=== PATIENT | female | born 1975 | race Caucasian/White ===

== ENCOUNTER 2016-07-05 15:01 | Emergency (ER) | payer OTHER ==
[~2016-07-05] VITALS: Ht 152.4 cm; Wt 71.0 kg
[2016-07-05 15:20] VITALS: Ht 152.4 cm; Wt 71.0 kg
[2016-07-05] MEDS ORDERED: ACET500C5 PO (15:41)
--- NOTE | 2016-07-05 16:51 | ERD ---
ER Documentation Chief Complaint Date/Time DATE: 07/05/16 TIME: 16:46 Chief Complaint S/P FALL TODAY C/O LEFT SIDE FACIAL PAIN DENIES KO HPI 40-year-old female patient with no significant past medical history presents to the ED complaining of a mechanical fall that occurred earlier today at 9:15 AM. States that she was cleaning the restroom and accidentally slipped and hit her nose and the side of her left face onto the sink. Denies any loss of consciousness. Denies taking any blood thinners. Denies any headache, nausea, vomiting, chest pain, shortness of breath, dizziness, weakness. Denies any lacerations, bleeding, bruising. ROS All systems reviewed and are negative except as per history of present illness. Medications Home Meds Active Scripts Acetaminophen* (Tylophen*) 500 Mg Capsule, 1 CAP PO Q6H Y for PAIN AND OR ELEVATED TEMP, #30 CAP Prov:DONNELL JUSTICE PA-C 07/05/16 Allergies Allergies: Coded Allergies: No Known Drug Allergies (Verified Allergy, Unknown, 11/06/08) PMhx/Soc History of Surgery: No ( x2) Anesthesia Reaction: No Hx Neurological Disorder: No Hx Respiratory Disorders: No Hx Cardiac Disorders: No Hx Psychiatric Problems: No Hx Miscellaneous Medical Probl: No Hx Alcohol Use: No Hx Substance Use: No Hx Tobacco Use: No Physical Exam Vitals Vital Signs Date Time Temp Pulse Resp B/P Pulse Ox O2 Delivery O2 Flow Rate FiO2 07/05/16 15:20 99.0 69 18 130/66 99 Physical Exam Const: [id number], well-nourished. In no acute distress. Head: Atraumatic, normocephalic. No hematoma. No brasher sign. Eyes: Normal Conjunctiva without injection. No purulent discharge. PERRLA. EOMI ENT: Normal external ear. Slight edema noted over the superior portion of the bridge of the nose. No ecchymosis, deformities noted. No epistaxis noted. Ear canal without erythema. Tympanic membrane pearly cash without effusion or bulging. No hemotympanum. Nasal canal clear with normal turbinates. Moist oropharynx without tonsillar exudates. Non-erythematous pharynx. Uvula midline. No drooling. No trismus. Neck: No cervical midline tenderness. Full range of motion. No meningismus. No cervical lymphadenopathy. No JVD. Resp: Clear to auscultation bilaterally. No wheezing, rhonchi, rales, or crackles. No accessory muscle use. No retractions. Cardio: Regular rate and rhythm. No murmurs, rubs or gallops. Abd: Soft, non tender, non distended. Normal bowel sounds. No palpable masses. No rebound tenderness. No guarding. Negative McBurney's Point. Negative Parker's Sign. Skin: Normal skin turgor. No petechiae or rashes Back: No midline tenderness. No CVA tenderness. Ext: No cyanosis, or edema. Distal pulses intact bilaterally. Neur: Awake and alert. Normal gait. Normal coordination. Cranial Nerves II- VII intact. Normal finger to nose. Muscle strength 5/5. Sensation intact. Psych: Normal Mood and Affect Procedures/MDM This is a 40-year-old female patient with no significant past medical history presents to the ED complaining of nose and left sided facial pain after a mechanical fall as she accidentally slipped and hit her face onto the sink. Patient is afebrile and nontoxic-appearing. Patient has normal vital signs. No indication for radiologic imaging at this time. Patient was able to breathe in and out of her nose. No septal deviation and low evidence of septal hematoma. Slight tenderness to palpation of the left side of her cheek. No pain with EOMs. EOMs intact. Low suspicion for entrapment of the extraocular muscles, ruptured globe, retro-orbital hemorrhage, periorbital cellulitis or fracture, intracranial bleed, mass-effect, acute neurological deficits, epidural hematoma, subdural hematoma, subarachnoid hemorrhage, meningitis, TIA, stroke, seizures or other emergent conditions. Discharge medications: Tylenol Follow up with primary care physician in 1-2 days. Instructed patient to return to the ED sooner for any worsening symptoms. Patient's questions were answered. Patient understood and agreed with discharge plan. Patient discharged stable. Departure Diagnosis: Primary Impression: Left facial pain Additional Impression: Nose injury Encounter type: initial encounter Qualified Code: S09.92XA - Nose injury, initial encounter Condition: Stable Patient Instructions: Fall, Mechanical, Fall Prevention Referrals: [facility] ([facility]) Usted se rosen hecho un examen mdico de control que le indica que no est en augustus condicin que requiera tratamiento urgente en el Departamento de Emergencia. Un estudio ms profundo y el tratamiento de ghotra condicin pueden esperar sin ningn riesgo hasta que usted sea atendida/o en el consultorio de ghotra mdico o augustus cl [place]. Es responsabilidad suya arreglar augustus karan para el seguimiento del hardy. MANEJO DE CONDICIONES NO URGENTES EN EL FUTURO 1) Si usted tiene un mdico de atencin primaria: Usted debera llamar a ghotra mdico de atencin primaria antes de venir al departamento de emergencia. Despus de las horas de consultorio, ghotra doctor o ghotra asociado/a est disponible por telfono. El mdico o enfermero de rajan en el servicio telefnico puede asesorarle por russell medio para atender el problema, o hardy contrario se puede programar augustus karan. 2) Si usted no tiene un mdico de atencin primaria: Llame al mdico o clnica de referencia que aparece abajo anh las horas de consultorio para hacer augustus karan para que le vean. CLINICAS: [facility] [phone] [address] [facility] [phone] [facility] [phone] [address] [facility] [place] [id number] [phone] [facility] [place] [id number] [phone] [facility]. [phone] [facility] () Usted se rosen hecho un examen mdico de control que le indica que no est en augustus condicin que requiera tratamiento urgente en el Departamento de Emergencia. Un estudio ms profundo y el tratamiento de ghotra condicin pueden esperar sin ningn riesgo hasta que usted sea atendida/o en el consultorio de ghotra mdico o augustus cl [place]. Es responsabilidad suya arreglar augustus karan para el seguimiento del hardy. MANEJO DE CONDICIONES NO URGENTES EN EL FUTURO 1) Si usted tiene un mdico de atencin primaria: Usted debera llamar a ghotra mdico de atencin primaria antes de venir al departamento de emergencia. Despus de las horas de consultorio, ghotra doctor o ghotra asociado/a est disponible por telfono. El mdico o enfermero de rajan en el servicio telefnico puede asesorarle por russell medio para atender el problema, o hardy contrario se puede programar augustus karan. 2) Si usted no tiene un mdico de atencin primaria: Llame al mdico o condado institucions de referencia que aparece abajo anh las horas de consultorio para hacer augustus karan para que le vean. SI USTED NO PUEDE PAGAR PARA SOILA UN MEDICO puede ir a: [facility] [address] [place] [address] [facility] [address] [place] [address] [facility] [address] [place] [address] [facility] [address] [place] [address] [facility] URGENT CARE/SPECIALTIES Additional Instructions: Llame al doctor MAANA y jeff augustus KARAN PARA DENTRO DE 2-3 ZABALA.Dgale a la secretaria que nosotros le instruimos hacer esta karan.Avise o llame si ghotra condicin se empeora antes de la karan. Regresa aqui si peor o no mejor. DONNELL JUSTICE PA-C Jul 05, 2016 16:50 DONNELL JUSTICE PA-C Jul 05, 2016 16:50
== END 2016-07-05 15:44 | disposition home or self-care (01) ==
LOC: E/R 15:01
DX: S09.92XA Unspecified injury of nose, initial encounter (principal); W01.198A Fall on same level from slipping, tripping and stumbling with subsequent striking against other object, initial encounter; Y92.002 Bathroom of unspecified non-institutional (private) residence as the place of occurrence of the external cause
CPT/HCPCS: 99283

== ENCOUNTER 2018-10-05 17:14 | Emergency (ER) | payer MEDICAID, OTHER ==
[~2018-10-05] VITALS: Ht 152.4 cm; Wt 69.7 kg
[~2018-10-05 17:14] MED LIST: ACET500C5 PO
[2018-10-05 17:21] VITALS: BP 166/91; PULSE 86; RESP 18; Ht 152.4 cm; Wt 69.7 kg
[2018-10-05] MEDS ORDERED: ACET-141 PO (18:42)
[2018-10-05] MEDS ORDERED: OFLO5DRO7 LEFT EAR (18:42)
[2018-10-05] MEDS ORDERED: HYDR28OI2 TP (18:42)
[2018-10-05] MEDS ORDERED: IBUP-1561 PO (18:42)
--- NOTE | 2018-10-05 22:21 | ERD ---
ER Documentation Chief Complaint Chief Complaint rash/insect bites to the arms and legs x 3 days; left ear discharge x 1 day HPI 42-year-old female no significant past medical history presents for left ear pain x1 day as well as rash of her arms and legs x3 days. The left ear pain is associated with some mild discharge. She states that she also has pain that is noted to be 5 out of 10. Pain is described as a dull sensation. Pain is nonra diating. She states that the rash over arms legs is due to insect bites. She states that the bite areas are itchy and red. She denies any fevers or chills. Denies chest pain or shortness of breath. Denies abdominal pain, nausea, vomiting. No other modifying factors noted. No treatment tried at home. ROS All systems reviewed and are negative except as per history of present illness. Medications Home Meds Active Scripts Ibuprofen* (Motrin*) 400 Mg Tab, 400 MG PO Q6H PRN for PAIN AND OR ELEVATED TEMP, #30 TAB Prov:ELIZABETH JACOBO DO 10/05/18 Acetaminophen* (Acetaminophen*) 500 MG Extra Strength Tablet, 500 MG PO Q4H PRN for PAIN AND OR ELEVATED TEMP, #30 TAB Prov:ELIZABETH JACOBO DO 10/05/18 Ofloxacin Otic (Ofloxacin Otic) 5 Ml Drops, 10 DROP LEFT EAR BID for ear infection for 7 Days, #1 BOTTLE Prov:ELIZABETH JACOBO DO 10/05/18 Hydrocortisone Acetate (Hydrocortisone) 28 Gm Oint...g., 28 GM TP BID PRN for itch for 10 Days, #1 TUBE Prov:ELIZABETH JACOBO DO 10/05/18 Acetaminophen* (Tylophen*) 500 Mg Capsule, 1 CAP PO Q6H PRN for PAIN AND OR ELEVATED TEMP, #30 CAP Prov:DONNELL JUSTICE PA-C 07/05/16 Allergies Allergies: Coded Allergies: No Known Drug Allergies (Verified Allergy, Unknown, 11/06/08) PMhx/Soc Medical and Surgical Hx: pt denies Medical Hx, pt denies Surgical Hx History of Surgery: No ( x2) Anesthesia Reaction: No Hx Neurological Disorder: No Hx Respiratory Disorders: No Hx Cardiac Disorders: No Hx Psychiatric Problems: No Hx Miscellaneous Medical Probl: No Hx Alcohol Use: No Hx Substance Use: No Hx Tobacco Use: No FmHx Family History: No coronary disease Physical Exam Vitals Vital Signs Date Temp Pulse Resp B/P (MAP) Pulse Ox O2 O2 Flow FiO2 Time Delivery Rate 10/05/18 99.1 86 18 166/91 99 17:21 (116) Physical Exam Const: No acute distress Head: Atraumatic Eyes: Normal Conjunctiva ENT: Left ear canal with some yellow discharge noted, Nose and Mouth exam ination normal. Neck: Full range of motion. No meningismus. Resp: Clear to auscultation bilaterally, peripheral pulses intact and equal Cardio: Regular rate and rhythm, no murmurs Abd: Soft, non tender, non distended. Normal bowel sounds Skin: papular mildly erythematous lesion over the right upper shoulder x1, bilateral forearms x1 each arm, left lower extremity x1, each about 1cm, circular, blanchable Back: No midline or flank tenderness Ext: No cyanosis, or edema Neur: Awake and alert, bilateral upper and lower extremity sensation intact Psych: Normal Mood and Affect Procedures/MDM Medical Decision Making: Differential diagnosis includes but not limited to otitis externa, otitis media, eustachian tube dysfunction, mastoiditis, TMJ dysfunction, foreign body Patient appeared well on exam. Examination of the left ear canal consistent with an otitis externa. Regarding patient's rash, differential diagnosis include but not limited to insect bite, cellulitis, dermatitis. This examination consistent with a insect bite. There appears to be no infection. Supportive care discussed with patient agrees with plan. Patient given prescription for supportive medication(s) as well as antibiotic eardrops for the otitis externa.. Patient advised to follow up with PCP in 1-2 days. Patient advised to return to ED for new or worsening symptoms. Patient stable on discharge from the ED. Disclaimer: Inadvertent spelling and grammatical errors are likely due to EHR/dictation software use and do not reflect on the overall quality of patient care. Also, please note that the electronic time recorded on this note does not necessarily reflect the actual time of the patient encounter. Departure Diagnosis: Primary Impression: Left otitis externa Otitis externa type: unspecified type Chronicity: acute Qualified Codes: H60.502 - Unspecified acute noninfective otitis externa, left ear Additional Impression: Dermatitis Condition: Fair Patient Instructions: Self-Care for Skin Rashes, External Ear Infection (Adult) Referrals: COMM[facility] CLIN[facility] YOU HAVE RECEIVED A MEDICAL SCREENING EXAM AND THE RESULTS INDICATE THAT YOU DO NOT HAVE A CONDITION THAT REQUIRES URGENT TREATMENT IN THE EMERGENCY DEPARTMENT. FURTHER EVALUATION AND TREATMENT OF YOUR CONDITION CAN WAIT UNTIL YOU ARE SEEN IN YOUR DOCTORS OFFICE WITHIN THE NEXT 1-2 DAYS. IT IS YOUR RESPONSIBILITY TO MAKE AN APPOINTMENT FOR FOLOW-UP CARE. IF YOU HAVE A PRIMARY DOCTOR --you should call your primary doctor and schedule an appointment IF YOU DO NOT HAVE A PRIMARY DOCTOR YOU CAN CALL OUR PHYSICIAN REFERRAL HOTLINE AT IF YOU CAN NOT AFFORD TO SEE A PHYSICIAN YOU CAN CHOSE FROM THE FOLLOWING [facility] [address] [facility] [facility]. [facility] [address] [facility] [address] [facility] [address] [facility]. [facility] [address] [facility]. [facility] [address] Additional Instructions: Llame al doctor MAANA y jeff augustus KARAN PARA DENTRO DE 1-2 ZABALA.Dgale a la secretaria que nosotros le instruimos hacer esta karan.Avise o llame si ghotra condicin se empeora antes de la karan. Regresa aqui si peor o no mejor. ELIZABETH JACOBO DO Oct 05, 2018 22:21
== END 2018-10-05 18:46 | disposition home or self-care (01) ==
LOC: E/R 17:14
DX: H60.502 Unspecified acute noninfective otitis externa, left ear (principal); L30.9 Dermatitis, unspecified
CPT/HCPCS: 99283